=== PATIENT | female | born 1975 | race Caucasian/White ===

== ENCOUNTER 2016-09-27 05:30 | Day surgery (SDC) | payer MEDICAID ==
[2016-09-26 13:59] LABS: HEMATOCRIT 39.4 % (36.0-48.0); MCH 30.7 pg (26.0-34.0); MCV 92.9 fL (80.0-100.0); MEAN PLATELET VOLUME 10.9 fL (7.4-10.4); RBC 4.24 10x6/uL (4.00-5.40); RDW 12.6 % (11.5-14.5); WBC 7.3 10x3/uL (4.8-10.8)
[2016-09-26 14:12] LABS: CALCIUM 8.6 mg/dL (8.5-10.1); CARBON DIOXIDE 27.8 mmol/L (21.0-32.0); CREATININE - SERUM 0.9 mg/dL (0.6-1.3); POTASSIUM - SERUM 3.8 mmol/L (3.5-5.1)
[~2016-09-27] VITALS: Ht 172.7 cm; Wt 90.3 kg
[~2016-09-27 05:30] MED LIST: ADIPEX-P37.5 M1 PO; COZAAR50 MG PO; CYCLOBENZAPRINE10 MG PO; FLUTICASONE PRO16 GM NASAL; GLIPIZIDE10 MG PO; GLUCOPHAGE1000 MG PO; HYDROCHLOROTHIA25 MG PO; HYDROCODONE-APA1 TAB PO; LANTUS SOL100 UNIT/1 SC; METOPROLOL TART50 MG PO; MULTI-DAY VITAM1 TAB PO; NEURONTIN 300300 MG PO; OMEPRAZOLE20 M1 PO; PHENERGAN25 M1 PO; PRAVACHOL80 MG PO; TEMOVATE30 GM TOPICAL; ULTRAM50 MG PO; VENTOLIN HFA18 GM INH; VOLTAREN100 MG PO
[2016-09-27 07:36] VITALS: BP 135/89; Ht 172.7 cm; Wt 90.3 kg
[2016-09-27] MEDS ORDERED: HYDROCODONE-APA1 TAB PO (09:28)
--- NOTE | 2016-09-27 14:58 | NUR ---
1015 IV DC WITH CATHER TIP INTACT
--- NOTE | 2016-10-01 12:58 | OP ---
PATIENT NAME: VALENTINA PATTON MEDICAL RECORD: [id number] :73 LOCATION:[facility] ADMISSION DATE: SURGEON: DANAY BOUCHER MD DATE OF OPERATION: 09/27/2016 PREOPERATIVE DIAGNOSIS: Right knee medial meniscus tear. POSTOPERATIVE DIAGNOSIS: Right knee medial meniscus tear. PROCEDURE PERFORMED: Right knee partial medial meniscectomy. SURGEON: Elpidio Boucher MD. ANESTHESIA: General. CONDITION: She tolerated the procedure well, was transferred to the recovery room in stable condition at termination of the procedure. INDICATIONS: This is a 41-year-old female who has been having increasing knee pain. She had an MRI showing a tear of the medial meniscus, discussed options and elected to proceed with a right knee partial meniscectomy. We discussed risks, benefits, and alternatives including blood loss, scar, pain, need for further procedure, anesthesia risk, nerve, artery and vein injuries, and continued pain. She understood and wished to proceed. OPERATIVE REPORT: The patient was taken to the operating room and placed in supine position. General anesthesia was obtained. She had her right knee confirmed to be the correct knee. The right knee was prepped and draped. Portal sites were marked and injected with 0.25% Marcaine with epinephrine. I then established an anterolateral portal for the scope and inflow on superior medial portal for the outflow. The patellofemoral joint was inspected where there were no significant lesions just mild grade I-II chondromalacia. Dropping down the medial gutter into the medial joint line, there was noted the medial meniscus tear. No significant cartilage lesions. I did establish an anteromedial portal under direct visualization. I debrided the anterior medial meniscus tear with a straight biter and a shaver. I then proceeded to move to the notch, the ACL and PCL were notably intact. Going to a lot of ____ position and lateral joint and showed mild fibrillations of the cartilage ____, but no cartilage where. I did minimal treatment on the lateral side of the knee. We went back, collected the fragments from the knee then brought the case to a close. She was injected with Duramorph and closed with 3-0 Prolene, awakened and transferred to the recovery room in stable condition, having tolerated procedure well. TRANSINT:[id number] Voice Confirmation ID: [id number] DOCUMENT ID: [id number] DANAY BOUCHER MD at 1258 CC: [id number] DICTATION DATE: 09/27/16922 KENNEL ASSISTANT: 09/27/16 1611 [facility] 09/27/16 [id number] [place] [address]
== END 2016-09-27 11:00 | disposition home or self-care (01) ==
LOC: D.OPS 05:30 → D.PAN 08:30 → D.OPS 09:00 → D.PAN 09:00 → D.OPS 11:00
PROVIDERS: Anesthesiology
DX: S83.241A Other tear of medial meniscus, current injury, right knee, initial encounter (principal)

== ENCOUNTER → 2017-01-07 10:50 | Outpatient (CLI) | payer OTHER ==
[2016-09-27 07:36] VITALS: BMI 30.3
== END | disposition home or self-care (01) ==
LOC: D.RAD 12-26 10:30
DX: Z02.71 Encounter for disability determination (principal)

== ENCOUNTER → 2018-04-29 08:54 | Outpatient (CLI) | payer OTHER ==
[2016-09-27 07:36] VITALS: BMI 30.3
== END | disposition home or self-care (01) ==
LOC: D.MRI 04-24 10:30
DX: S46.002D Unspecified injury of muscle(s) and tendon(s) of the rotator cuff of left shoulder, subsequent encounter (principal); X58.XXXA Exposure to other specified factors, initial encounter

== ENCOUNTER 2018-07-31 11:15 | Day surgery (SDC) | payer OTHER ==
[2018-07-30 13:27] LABS: HEMOGLOBIN 12.5 g/dL (12-16); MCH 30.9 pg (26.0-34.0); MCHC 33.8 g/dL (31.0-37.0); MCV 91.6 fL (80.0-100.0); MEAN PLATELET VOLUME 9.9 fL (7.4-10.4); RBC 4.04 10x6/uL (4.00-5.40); RDW 13.1 % (11.5-14.5); WBC 11.2 10x3/uL (4.8-10.8)
[2018-07-30 13:34] LABS: ANION GAP 17.2 mmol/L (8-16); CALCIUM 8.8 mg/dL (8.5-10.1); CARBON DIOXIDE 23.4 mmol/L (21.0-32.0); POTASSIUM - SERUM 3.6 mmol/L (3.5-5.1)
[~2018-07-31] VITALS: Ht 172.7 cm; Wt 88.9 kg
[~2018-07-31 11:15] MED LIST changes: +BUSPAR5 MG PO; +COZAAR25 MG PO; +ELAVIL25 MG PO; +GLIMEPIRIDE4 MG PO; +LIPITOR80 MG PO; +TOPAMAX200 MG PO; +VISTARIL25 MG PO; +VOLTAREN100 GM TOPICAL; +ZETIA10 MG PO
[2018-07-31 12:09] VITALS: BP 104/64; Ht 172.7 cm; Wt 88.9 kg
[2018-07-31] MEDS ORDERED: PHENERGAN25 M1 PO (15:46)
[2018-07-31] MEDS ORDERED: ULTRAM50 MG PO (15:48)
[2018-07-31] MEDS ORDERED: VISTARIL50 MG PO (15:48)
[2018-07-31] MEDS ORDERED: TORADOL10 MG PO (15:49)
--- NOTE | 2018-07-31 18:18 | NUR ---
6355 PT COMPLAINED OF PAIN TO L SHOULDER AREA. DR BARKLEY NOTIFIED AND AT BEDSIDE TO [facility] SHOULDER AT THIS TIME. PT TOLERATED WELL AND REPORTS DECREASED PAIN.
--- NOTE | 2018-07-31 18:19 | NUR ---
PTDC INSTRUCTION REVIEWED AT THIS TIME, PT VERBALIZES UNDERSTANDING. IV REMOVED AT THIS TIME, INTACT, NOREDNESS OR SWELLING NOTED TO THE SITE. PT LEAVING OPS AT THIS TIME VIA WC.
--- NOTE | 2018-08-03 07:39 | OP ---
PATIENT NAME: VALENTINA POWELL MEDICAL RECORD: [id number] :73 LOCATION:[facility] ADMISSION DATE: SURGEON: DARIEL VALDERRAMA DO DATE OF OPERATION: 07/31/2018 PROCEDURE PERFORMED: Left shoulder arthroscopy with subacromial decompression, distal clavicle excision, rotator cuff repair, and biceps tenodesis. PREOPERATIVE DIAGNOSES: Left shoulder impingement syndrome and acromioclavicular joint arthritis. POSTOPERATIVE DIAGNOSES: Left shoulder impingement syndrome and acromioclavicular joint arthritis with a rotator cuff tear and superior labrum anterior and posterior tear. INDICATIONS: Ms. Powell is a 43-year-old female who has had left shoulder pain for quite some time, it was more than 6 months. She has tried injections and physical therapy. She ended up getting an MRI a few months ago, which showed some inflammation in her supraspinatus tendon and impingement type picture. It was not done with contrast or it was not an arthrogram; therefore, the SLAP tear could not have been seen, but she tried more physical therapy and injections after that and to no avail. She was tired of dealing with pain and wanted something done surgically. I informed her of the risks and benefits of rotator cuff repair, subacromial decompression, distal clavicle excision and biceps tenodesis and she is aware of the risks of infection, bleeding, damage to nerves and vessels, need for further surgery, and even and she signed the consent. SURGEON: Dariel Valderrama DO DESCRIPTION OF PROCEDURE: The patient was given 900 mg of clindamycin preoperatively. She was given a block by anesthesia and taken to the operative suite, laid in the right lateral decubitus position with the left arm up. The left shoulder was prepped and draped at that time, a timeout was performed. Everyone was agreeance with the correct side, site, patient, and procedure. The procedure then began, inserted an 18-gauge spinal needle into the shoulder joint, the posterior portal, insufflating the capsule of the joint itself with 60 mL of normal saline. The incision then began in the posterior portal with an 11-blade scalpel and the trocar entered into the joint. The trocar was removed and a gush of water came out indicating it was in the joint. The scope was then entered into the joint and inspection began. Anterior portal was established. An 18-inch spinal needle and 11-blade scalpel, trocar entered into the joint. A burner was brought in. A SLAP tear was seen at that point pulling up on the superior labrum and biceps tenotomy was done at that time. The subscapularis tendon was inspected and seen to be in good repair in good shape. The supraspinatus tendon; however, was not. There was fraying seen on the articular surface. The fraying was cleared off and seemed to be greater than 50% of thickness. At that point, the inferior gutter was inspected as well, and there were no loose bodies within there. The cartilage was in good shape as well. Then changed to the subacromial space, there was a type 2 acromion seen. A lateral portal was established and again started with an 11-blade scalpel and then a burner was brought in to clean off the acromion and then a shaver was brought in to do the subacromial decompression. The anterolateral acromion was then smoothed out removing the spur. The AC joint then was inspected as well and the clavicle was touching the acromion. This was cleared out. Distal OPERATIVE REPORT [id number] VALENTINA POWELL clavicle was excised approximately 7 mm, opening up the space 7 mm to give it more room. The rotator cuff was then inspected on the bursal side and there was indeed a tear on the bursal side as well that did communicate all the way through to the articular surface. At that point, the scope was removed and a mini open began. Incision was enlarged with a lateral incision. The deltoid fascia was incised. Two Army-Staley's were used to dissect down bluntly through the deltoid interval. The bursa was removed and the tear was exposed. A decortication was done when the inspection was done on articular side with the shaver and was not done once that was opened. The SpeedBridge was then used. A punch was put in and 2 anchors were put in about a cm apart. The Scorpion needle was then used to bite through the supraspinatus and the 2 free ends of the FiberTape were tied on each one of the anchors and then 1 piece of the FiberTape was crossed over one anterior from the posterior side and one posterior from the anterior side and the lateral anchors were placed with a punch and then the anchors. These had a very good repair doing that and the site was irrigated thoroughly and then the attention was drawn to the biceps tenodesis site. Anterior humerus was incised just around the pec area. Dissection was made down to the interval between the pec and the deltoid. A small segundo was made in the pec fascia and the bicep tendon was pulled out through that. Long head of the biceps tendon was then whipstitched and placed a button unicortically and cinched down to the humerus. This was tied down and a free needle was used to go through the bicep tendon again and then tied down on top of that. The site was then thoroughly irrigated. The skin was closed with 2-0 Vicryl in an inverted interrupted fashion at that site as well as the open rotator cuff site and a 4-0 Monocryl was ran on the skin on each one of the side. The portal sites were closed with 4-0 Monocryl in an inverted interrupted fashion. Then, Dermabond was placed on that and a Telfa and Tegaderm were placed over each one of the incision sites. The patient was awakened and taken to recovery in stable condition. COMPLICATIONS: None. BLOOD LOSS: Minimal. TRANSINT:[id number] Voice Confirmation ID: [id number] DOCUMENT ID: [id number] DARIEL VALDERRAMA DO at 0739 CC: [id number] DICTATION DATE: 07/31/18 1558 [place] OPERATOR: 07/31/18 2310 [facility] 07/31/[address] [address]
== END 2018-07-31 18:18 | disposition home or self-care (01) ==
LOC: D.OPS 11:15
PROVIDERS: Anesthesiology
DX: S43.422A Sprain of left rotator cuff capsule, initial encounter (principal); M75.42 Impingement syndrome of left shoulder; M19.012 Primary osteoarthritis, left shoulder